=== PATIENT | male | born 1980 | race Caucasian/White ===

== ENCOUNTER 2017-02-22 07:07 | Emergency (ER) | payer SELFPAY ==
[~2017-02-22] VITALS: Ht 182.9 cm; Wt 84.1 kg
[2017-02-22 07:09] VITALS: TEMP 36.5; Ht 182.9 cm; Wt 84.1 kg
[2017-02-22] MEDS ORDERED: KETOROLAC TROMETHAMINE 30 MG/ML VIAL IV STA (07:54)
[2017-02-22] MEDS ORDERED: ONDANSETRON INJ 2 MG/ML 2 ML VIAL IV STA (07:54)
[2017-02-22 08:08] LABS: BASO % 0.1 %; BASO ABS # 0.01 K/uL (0-0.2); EOS % 3.3 %; EOS ABS # 0.29 K/uL (0-0.5); HEMATOCRIT 43.6 % (42-52); HEMOGLOBIN 15.3 g/dL (14.0-18.0); IG# 0.01 K/uL (0.00-0.02); LYMPH ABS # 1.59 K/uL (1.2-3.4); MEAN CELL VOLUME 93.2 fL (80-100); MEAN CORPUSCULAR HEMOGLOBIN 32.7 pg (25-34); MEAN CORPUSCULAR HGB CONC 35.1 g/dl (32-36); MEAN PLATELET VOLUME 10.8 fL (7.4-10.4); MONO % 19.1 %; MONO ABS # 1.69 K/uL (0.11-0.59); NEUT % 59.4 %; NEUT ABS # 5.24 K/uL (1.4-6.5); PLATELET COUNT 171 K/uL (130-400); RED CELL DISTRIBUTION WIDTH SD 51.5 fL (36.4-46.3); WHITE BLOOD COUNT 8.83 K/uL (4.8-10.8)
[2017-02-22 08:24] LABS: CALCIUM 8.4 mg/dl (8.5-10.1); CREATININE 1.34 mg/dl (0.60-1.40); POTASSIUM 3.6 mmol/L (3.5-5.1)
--- NOTE | 2017-02-22 08:56 | DIAGNOSTIC IMAGING REPORT ---
ABD/PELVIS WITHOUT FOR STONE CT DOSE: 750.34 mGy.cm HISTORY: Pain Left flank pain TECHNIQUE: Multiaxial CT images of the abdomen and pelvis were performed without the use of intravenous and oral contrast according to the standard department stone protocol. A dose lowering technique was utilized adhering to the principles of ALARA. COMPARISON STUDY: None. FINDINGS: Minimal dependent basilar atelectasis. The liver spleen and pancreas are considered unremarkable. Right kidney demonstrates several nonobstructing calcifications. It is negative for hydronephrosis. Left kidney demonstrates several renal cysts as well as several nonobstructing calcifications. There is mild left renal hydroureteronephrosis. There is a partially obstructing calculus distal left ureter measuring 8 x 5 mm. Bladder is relatively collapsed. There are several scattered colonic diverticuli with no evidence of diverticulitis. IMPRESSION: 1. Partially obstructing calculus distal left ureter measuring 8 x 5 mm. 2. Mild left hydroureteronephrosis. 3. Several nonobstructing renal calcifications bilaterally. 4. Several small left renal cysts. The above report was generated using voice recognition software. It may contain grammatical, syntax or spelling errors. Electronically signed by: Desmond Whitfield M.D. 02/22/2017 8:55 AM Dictated Date/Time: 02/22/2017 8:52 AM
[2017-02-22] MEDS ORDERED: TAMS0.4C38 PO (09:32)
[2017-02-22] MEDS ORDERED: HYDR-5688 PO (09:32)
[2017-02-22 09:41] VITALS: BP 123/85; PULSE 64; O2SAT 98
--- NOTE | 2017-02-22 10:17 | DIAGNOSTIC IMAGING REPORT ---
KUB CLINICAL HISTORY: left ureteral stone COMPARISON STUDY: CT examination same date FINDINGS: Nonobstructive bowel pattern. 8 x 5 mm calculus distal left ureter is noted on plain film. No significant additional calcifications within limitations of overlying bowel content. IMPRESSION: Distal left ureteral calculus unchanged from the CT examination of the same date. Nonobstructive bowel pattern. The above report was generated using voice recognition software. It may contain grammatical, syntax or spelling errors. Electronically signed by: Desmond Whitfield M.D. 02/22/2017 10:15 AM Dictated Date/Time: 02/22/2017 10:14 AM
--- NOTE | 2017-02-22 17:47 | EMERGENCY ROOM VISIT NOTE ---
ED Visit Note First contact with patient: 07:22 CHIEF COMPLAINT: Left Flank and abdominal pain today HISTORY OF PRESENT ILLNESS: This 36-year-old white male patient had sudden onset of pain in the left flank and left lower quadrant of the abdomen about 5 AM. There is nausea but no vomiting. The patient has not noticed any blood in urine. Increased frequency, urgency, and pain with urination this morning. There is a history of kidney stones. He has required retrieval in the past. The pain is steady and severe. A female friend accompanies him today. No fevers or chills. Patient states he also is concerned about a low temperature. He took his temperature at home and states it was 95.1. Pain is 7/10. REVIEW OF SYSTEM: HEENT: No dizziness, visual problems, hearing loss, or tinnitus. There is no difficulty swallowing and no oral lesions are present. LYMPH: No adenopathy. PULMONARY: No cough, shortness of breath, sputum production or hemoptysis. CARDIOVASCULAR: No chest pain, palpitations, shortness of breath or peripheral edema. GASTROINTESTINAL: No diarrhea, constipation, nausea, vomiting, or abdominal pain. GENITOURINARY: No dysuria, frequency, urgency or nocturia. NEUROLOGIC: No weakness, muscle tenderness, epilepsy or history of neurological problems. No history of chronic headaches. MUSCULOSKELETAL: No history of joint tenderness/swelling. No history of arthritis or arthralgias. SKIN: No rashes or lesions. PSYCHIATRIC: No history of depression or mental illness. Positive history of narcotic addiction but he states he has been clean for 18 months. ENDOCRINE: No history of diabetes, thyroid disorders, or abnormal hair growth. PMH: Supplemental sheet was reviewed and signed. Previous surgeries: Ureteroscopy Medical history: Significant for kidney stones and history of narcotic addiction Current medications: None Allergies: NKDA Family history: Noncontributory SOCIAL HISTORY: Patient lives at home. Positive tobacco use, no excessive alcohol use. PHYSICAL EXAM: Vital Signs: Afebrile. Reviewed and filed in patient's chart general: Well-developed, well-nourished, young white male, in obvious discomfort. He is sitting on the bed. Alert and oriented. The patient is restless. Skin: Warm and dry with good turgor. No rashes or lesions. No ecchymosis or erythema. The patient is not diaphoretic. No abrasions. HEART: Regular rate and rhythm without murmurs, ectopy, gallops, or rubs. Peripheral pulses are 2+. LUNGS: Clear to auscultation and breath sounds equal. No wheezes , rales, or rhonchi. Good air movement. ABDOMEN: Soft, non-tender, no hepato- splenomegaly, or masses. There is left CVA tenderness. NEUROLOGICAL: Sensory and motor functions grossly intact. EYES: PERRL, EOMI, no discharge or injection. EMERGENCY DEPARTMENT COURSE: Urinalysis shows positive blood. CT scan of the abdomen and pelvis without contrast shows an 8 x 5 mm ureteral stone with partial obstruction and hydronephrosis. KUB was also obtained today confirming the calcium oxalate stone. The patient was given Toradol 30 mg IV for the pain. The pain had improved by the time of discharge. DIAGNOSIS: Left ureterolithiasis. Left flank pain. DISCHARGE INSTRUCTIONS AND TREATMENT: The patient was educated regarding today' s findings. Conservative care measures were discussed. I did speak with Dr. Benjamin regarding this patient due to the size of the stone. He did not think it was likely to pass on its own. Patient will call the office on Friday for follow-up this week. I did discuss the possibility of ureteroscopy for retrieval versus lithotripsy. High fluid intake, strain all urine passed over the next 2 days and bring any solid particles you find to your urologist for analysis. Prescription was given for [place] 5 mg, 1-2 tablets every 6 hours if needed for pain. Driving precautions were given. He was also prescribed Flomax 0.4 mg daily 5 days. Return to the ER if the pain becomes severe. Kidney stone handout was provided. Current/Historical Medications Scheduled Tamsulosin Hcl (Flomax), 0.4 MG PO DAILY Scheduled PRN Hydrocodone/Acetaminophen 5MG/325MG ([place] 5MG/325MG), 1-2 TABLET PO Q6 PRN for Pain Allergies Coded Allergies: No Known Allergies (Unverified , 02/22/17) Vital Signs Date Time Temp Pulse Resp B/P (MAP) Pulse Ox O2 Delivery O2 Flow Rate FiO2 02/22/17 09:41 64 16 123/85 98 Room Air 02/22/17 09:00 66 123/85 97 Room Air 02/22/17 07:09 36.5 81 17 134/93 96 Room Air Laboratory Results 02/22/17 07:55 Red Blood Count 4.68, Mean Corpuscular Volume 93.2, Mean Corpuscular Hemoglobin 32.7, Mean Corpuscular Hemoglobin Concent 35.1, Mean Platelet Volume 10.8, Neutrophils (%) (Auto) 59.4, Lymphocytes (%) (Auto) 18.0, Monocytes (%) (Auto) 19.1, Eosinophils (%) (Auto) 3.3, Basophils (%) (Auto) 0.1, Neutrophils # (Auto ) 5.24, Lymphocytes # (Auto) 1.59, Monocytes # (Auto) 1.69, Eosinophils # (Auto ) 0.29, Basophils # (Auto) 0.01 02/22/17 07:55 Test 02/22/17 07:40 02/22/17 07:55 Urine Color DK YELLOW Urine Appearance CLEAR (CLEAR) Urine pH 5.0 (4.5-7.5) Urine Specific Garnett 1.035 (1.000-1.030) Urine Protein TRACE (NEG) Urine Glucose (UA) NEG (NEG) Urine Ketones NEG (NEG) Urine Occult Blood 2+ (NEG) Urine Nitrite NEG (NEG) Urine Bilirubin NEG (NEG) Urine Urobilinogen NEG (NEG) Urine Leukocyte Esterase SMALL (NEG) Urine WBC (Auto) >30 /hpf (0-5) Urine RBC (Auto) 10-30 /hpf (0-4) Urine Hyaline Casts (Auto) 1-5 /lpf (0-5) Urine Epithelial Cells (Auto) 10-20 /lpf (0-5) Urine Bacteria (Auto) 1+ (NEG) Urine Renal Epithelial Cells /lpf (0-5) Urine Mucus PRESENT (NONE PRSENT) White Blood Count 8.83 K/uL (4.8-10.8) Red Blood Count 4.68 M/uL (4.7-6.1) Hemoglobin 15.3 g/dL (14.0-18.0) Hematocrit 43.6 % (42-52) Mean Corpuscular Volume 93.2 fL (80-100) Mean Corpuscular Hemoglobin 32.7 pg (25-34) Mean Corpuscular Hemoglobin Concent 35.1 g/dl (32-36) Platelet Count 171 K/uL (130-400) Mean Platelet Volume 10.8 fL (7.4-10.4) Neutrophils (%) (Auto) 59.4 % Lymphocytes (%) (Auto) 18.0 % Monocytes (%) (Auto) 19.1 % Eosinophils (%) (Auto) 3.3 % Basophils (%) (Auto) 0.1 % Neutrophils # (Auto) 5.24 K/uL (1.4-6.5) Lymphocytes # (Auto) 1.59 K/uL (1.2-3.4) Monocytes # (Auto) 1.69 K/uL (0.11-0.59) Eosinophils # (Auto) 0.29 K/uL (0-0.5) Basophils # (Auto) 0.01 K/uL (0-0.2) RDW Standard Deviation 51.5 fL (36.4-46.3) RDW Coefficient of Variation 15.0 % (11.5-14.5) Immature Granulocyte % (Auto) 0.1 % Immature Granulocyte # (Auto) 0.01 K/uL (0.00-0.02) Anion Gap 7.0 mmol/L (3-11) Est Creatinine Clear Calc Drug Dose 85.3 ml/min Estimated GFR () 79.5 Estimated GFR (Non- 68.6 BUN/Creatinine Ratio 12.4 (10-20) Calcium Level 8.4 mg/dl (8.5-10.1) Medications Administered Medications (Trade) Dose Ordered Sig/Angela Route Start Time Stop Time Status Last Admin Dose Admin Ketorolac Tromethamine (Toradol Inj) 30 mg NOW STAT IV 02/22/17 07:54 02/22/17 07:58 DC 02/22/17 08:13 30 MG Ondansetron HCl (Zofran Inj) 4 mg NOW STAT IV 02/22/17 07:54 02/22/17 07:58 DC 02/22/17 08:13 4 MG Departure Information Prescriptions Hydrocodone/Acetaminophen 5MG/325MG ([place] 5MG/325MG) Tab 1-2 TABLET PO Q6 Y for Pain, #12 TAB For Initial Treatment Prov: Tone Winn,P.A. 02/22/17 Tamsulosin Hcl (FLOMAX) 0.4 Mg Cap 0.4 MG PO DAILY, #5 CAP Prov: Tone Winn,P.A. 02/22/17 Referrals No Doctor, Assigned (PCP) Patient Instructions Formerly [facility], [facility]
== END 2017-02-22 09:49 | disposition home or self-care (01) ==
LOC: C.EDB 07:10
DX: N20.1 Calculus of ureter (principal); R10.9 Unspecified abdominal pain; Z72.0 Tobacco use; Z87.442 Personal history of urinary calculi

== ENCOUNTER → 2017-02-28 | Day surgery (SDC) | payer SELFPAY ==
[2017-02-26 14:36] VITALS: Ht 182.9 cm; Wt 84.1 kg
[~2017-02-28] VITALS: Ht 182.9 cm; Wt 84.1 kg
[~2017-02-28] MED LIST: ATROPINE SULFATE 0.1 MG/ML 5ML SYR IV PRN; CIPROFLOXACIN 400MG / D5W IV SCH; DEXAMETHASONE SOD INJ 4 MG/ML VIAL ONE; EpHEDrine SULFATE INJ 50 MG/ML AMP IV PRN; FENTANYL CITRATE INJ 50 MCG/1 ML 2 ML VIAL IV PRN; FENTANYL CITRATE INJ 50 MCG/1 ML 2 ML VIAL ONE; HYDR-5688 PO; LACTATED RINGER'S 1000ML 1,000 ML IV SCH; LIDOCAINE HCL 2% 2 ML VIAL (20MG/ML) ONE; MIDAZOLAM HCL 1 MG/ML 2ML VIAL ONE; ONDANSETRON INJ 2 MG/ML 2 ML VIAL ONE; OXYCODONE/ACETAMINOPHEN 5-325 TAB PO PRN; PROPOFOL IV EMULSION 10 MG/ML 20 ML VIAL IV ONE; TAMS0.4C38 PO
--- NOTE | 2017-02-28 08:13 | History & Physical Bridge Note ---
H&P Re-Evaluation Bridge Note: I have examined the patient, reviewed the History & Physical and in the interval since the performance of the History & Physical I have noted the following changes of clinical significance: No changes noted
--- NOTE | 2017-02-28 10:02 | [facility] Post Operative Brief Note ---
Immediate Operative Summary Operative Date Feb 28, 2017. Pre-Operative Diagnosis Left Ureteral Stone Post-Operative Diagnosis Same Procedure(s) Performed Left Extracorporeal Shock Wave Lithotripsy Surgeon Dr. Claude Currie Donor Services Coordinator Surgeon(s) None Estimated Blood Loss 0 mL Findings Consistent with Post-Op Diagnosis Specimens None Drains None Anesthesia Type General Complication(s) none Disposition Accompanied Pt To Recover: no Disposition: Recovery Room / PACU
--- NOTE | 2017-02-28 10:05 | Discharge Instructions ---
Discharge Instructions Date of Service Feb 28, 2017. Admission Reason for Admission: Stones Discharge Discharge Diagnosis / Problem: L ureteral stone s/p ESWL Discharge Goals Goal(s): Decrease discomfort, Improve function, Improve disease control, Therapeutic intervention Activity Recommendations Activity Limitations: as noted below Lifting Limitations: no more than 25 pounds, gradually increase as tolerated Exercise/Sports Limitations: rest today, gradually increase as tolerated May Resume Sexual Activity: when tolerated Shower/Bathe: no limitations Driving or Machine Use: resume 1 day after discharge . Instructions / Follow-Up Instructions / Follow-Up Follow-up in office as scheduled with KUB Xray before appointment. Current Hospital Diet Patient's current hospital diet: Discharge Diet Recommended Diet: Regular Diet (good fluid intake) Procedures Procedures Performed: Left Extracorporeal Shock Wave Lithotripsy Pending Studies Studies pending at discharge: no Medical Emergencies . Who to Call and When: Medical Emergencies: If at any time you feel your situation is an emergency, please call 911 immediately. . Non-Emergent Contact Non-Emergency issues call your: Urologist Call Non-Emergent contact if: you have a fever, temperature is above 101, your pain is not controlled, your pain is worsening, your pain is unusual for you, your pain is concerning you, you have any medication questions . . "Provider Documentation" section prepared by Buck Currie. . VTE Core Measure Inpt VTE Proph given/why not?: SCD's
--- NOTE | 2017-02-28 10:09 | [facility] Operative Report ---
Operative Report Operative Date Feb 28, 2017. Pre-Operative Diagnosis Left Ureteral Stone Post-Operative Diagnosis Same Procedure(s) Performed Left Extracorporeal Shock Wave Lithotripsy Surgeon Dr. Claude Currie Underground Production Foreperson Surgeon(s) None Estimated Blood Loss 0 mL Findings Fair stone fragmentation on fluoro. Specimens None Drains NA Anesthesia GALMA Disposition Recovery Room / PACU Indications 36 yo male with a L distal ureteral stone for ESWL. Please see H&P for further details. Cipro IV provided and SCDs used for DVT prophylaxis. Description of Procedure The patient was brought to the litho suite. He was correctly identified and the stone was visualized on his most recent x-rays. After the correct time out was performed the patient was positioned over the therapy head. An adequate level of anesthesia was administered. The extracorporeal shockwave lithotripsy treatment was then commenced. Please see the [facility] Stone Management sheet for complete treatment summary. After completion of the procedure the patient was taken to the recovery room in stable condition. I attest to the content of the Intraoperative Record and any orders documented therein. Any exceptions are noted below.
[2017-02-28 10:42] VITALS: TEMP 36.3
[2017-02-28 11:11] VITALS: BP 136/87; PULSE 68; O2SAT 97
--- NOTE | 2017-02-28 11:16 | Anesthesia Progress Nt - [facility] ---
Anesthesia Post Op Note Date & Time Feb 28, 2017 at 11:16 Vital Signs Pain Intensity: 4.0 Vital Signs Past 12 Hours Date Time Temp Pulse Resp B/P (MAP) Pulse Ox O2 Delivery O2 Flow Rate FiO2 02/28/17 11:11 68 16 136/87 (103) 97 Room Air 02/28/17 10:42 36.3 58 18 128/88 (101) 98 Room Air 02/28/17 10:37 36.4 02/28/17 10:35 117/84 (94) 02/28/17 10:34 54 10 96 02/28/17 10:34 55 10 02/28/17 10:30 111/83 (89) 02/28/17 10:29 Room Air 02/28/17 10:29 54 7 99 02/28/17 10:29 54 7 02/28/17 10:25 114/80 (91) 02/28/17 10:24 56 6 02/28/17 10:24 56 6 98 02/28/17 10:20 117/82 (90) 02/28/17 10:19 64 5 02/28/17 10:19 65 5 97 02/28/17 10:15 114/76 (83) 02/28/17 10:14 67 14 02/28/17 10:14 71 14 97 02/28/17 10:10 107/86 (91) 02/28/17 10:09 69 14 02/28/17 10:09 69 14 96 02/28/17 10:07 117/81 (86) 02/28/17 10:04 36 70 12 119/51 99 Diffusion Mask 5 02/28/17 08:00 36.4 87 16 120/86 (97) 97 Room Air Notes Mental Status: alert / awake / arousable, participated in evaluation Pt Amnestic to Procedure: Yes Nausea / Vomiting: adequately controlled Pain: adequately controlled Airway Patency, RR, SpO2: stable & adequate BP & HR: stable & adequate Hydration State: stable & adequate Anesthetic Complications: no major complications apparent
== END | disposition home or self-care (01) ==
LOC: X.SURG 07:49
PROVIDERS: ATTEND Urology
DX: N20.0 Calculus of kidney (principal); N20.1 Calculus of ureter; F17.200 Nicotine dependence, unspecified, uncomplicated; Z98.890 Other specified postprocedural states; Z83.3 Family history of diabetes mellitus

== ENCOUNTER 2017-04-07 08:08 | Day surgery (SDC) | payer SELFPAY ==
[2017-03-24 14:46] VITALS: BMI 25.0
[~2017-04-07] VITALS: Ht 182.9 cm; Wt 84.1 kg
[~2017-04-07 08:08] MED LIST changes: -ATROPINE SULFATE 0.1 MG/ML 5ML SYR IV PRN; +CIPROFLOXACIN / D5W 400 MG IV SCH; -CIPROFLOXACIN 400MG / D5W IV SCH; -DEXAMETHASONE SOD INJ 4 MG/ML VIAL ONE; -EpHEDrine SULFATE INJ 50 MG/ML AMP IV PRN; -FENTANYL CITRATE INJ 50 MCG/1 ML 2 ML VIAL IV PRN; -FENTANYL CITRATE INJ 50 MCG/1 ML 2 ML VIAL ONE; -HYDR-5688 PO; -LIDOCAINE HCL 2% 2 ML VIAL (20MG/ML) ONE; -MIDAZOLAM HCL 1 MG/ML 2ML VIAL ONE; -ONDANSETRON INJ 2 MG/ML 2 ML VIAL ONE; -OXYCODONE/ACETAMINOPHEN 5-325 TAB PO PRN; -PROPOFOL IV EMULSION 10 MG/ML 20 ML VIAL IV ONE; -TAMS0.4C38 PO
[2017-04-07 08:30] VITALS: BP 143/88; PULSE 63; TEMP 36.4; O2SAT 98; Ht 182.9 cm; Wt 84.1 kg
[2017-04-07] MEDS ORDERED: MIDAZOLAM HCL 1 MG/ML 2ML VIAL ONE (08:58)
[2017-04-07] MEDS ORDERED: PROPOFOL IV EMULSION 10 MG/ML 20 ML VIAL IV ONE (08:58)
[2017-04-07] MEDS ORDERED: DEXAMETHASONE SOD INJ 4 MG/ML VIAL ONE (08:58)
[2017-04-07] MEDS ORDERED: LIDOCAINE HCL 2% 2 ML VIAL (20MG/ML) ONE (08:58)
[2017-04-07] MEDS ORDERED: ONDANSETRON INJ 2 MG/ML 2 ML VIAL ONE (08:58)
[2017-04-07] MEDS ORDERED: FENTANYL CITRATE INJ 50 MCG/1 ML 2 ML VIAL ONE ×3 (08:58→10:53)
[2017-04-07] MEDS ORDERED: HYDR-5688 PO (09:37)
[2017-04-07] MEDS ORDERED: PHEN95TA14 PO (09:37)
[2017-04-07] MEDS ORDERED: CIPR-255 PO (09:37)
--- NOTE | 2017-04-07 09:41 | Discharge Instructions ---
Discharge Instructions Date of Service Apr 07, 2017. Admission Reason for Admission: STONE Discharge Discharge Diagnosis / Problem: stone Discharge Goals Goal(s): Decrease discomfort, Improve function, Increase independence, Improve disease control Activity Recommendations Activity Limitations: resume your previous activity Lifting Limitations: none Exercise/Sports Limitations: none May Resume Sexual Activity: when tolerated Shower/Bathe: no limitations Driving or Machine Use: resume 1 day after discharge . Instructions / Follow-Up Instructions / Follow-Up Please keep your previously scheduled follow up appointment with Dr. Bosch. Current Hospital Diet Patient's current hospital diet: Discharge Diet Recommended Diet: Regular Diet Pending Studies Studies pending at discharge: no Medical Emergencies . Who to Call and When: Medical Emergencies: If at any time you feel your situation is an emergency, please call 911 immediately. . Non-Emergent Contact Non-Emergency issues call your: Urologist Call Non-Emergent contact if: you have a fever, temperature is above 101.5, your pain is not controlled, your pain is worsening . . "Provider Documentation" section prepared by Brendon Owens. . VTE Core Measure Inpt VTE Proph given/why not?: Treatment not indicated [place] Drug Monitoring Program Search Results: patient reviewed within database, no issues identified Drug Monitoring Findings: 2 rx's for pain meds since Feb (related to an acute stone episode and a prior surgery)
--- NOTE | 2017-04-07 10:28 | [facility] Operative Report ---
Operative Report Operative Date Apr 07, 2017. Pre-Operative Diagnosis Nephrolithiasis Post-Operative Diagnosis Nephrolithiasis Procedure(s) Performed Cystoscopy, Left Ureteroscopy, Laser Lithotripsy, Stent Insertion [id number] Surgeon Dr. Bosch Promotions Officer Surgeon(s) none Estimated Blood Loss 0 ML Findings As per dictation Specimens NONE PER SURGEON Drains [id number] Anesthesia Type General Complication(s) none Disposition no Recovery Room / PACU Indications symptomatic L ureteral stone Description of Procedure Patient was identified in the preoperative holding area, appropriate informed consents reviewed and completed and he was transported to the operating suite. Upon arrival he received appropriate preoperative antibiotics in the form of ciprofloxacin. Adequate general anesthesia was achieved and he was placed in dorsal lithotomy position where he was sterilely prepped and draped in standard fashion. I began the case by passing a 22 R[place]an cystoscope with 30 lens. Inspection of the urethra revealed no evidence of stricture disease. He has a small prostate which is appropriate for age. Inspection of the bladder revealed healthy-appearing mucosa with slight mounding of the estimated area of the intramural ureter on the left. Ureteral orifices were in orthotopic location and there was clear reflux bilaterally. After performing my full evaluation, I turned my attention to the left ureteral orifice and cannulated with a sensor wire and a 5 [place]an open-ended catheter. Under fluoroscopic guidance I was able to advance this wire to the kidney without difficulty. Of note there is a large opacity visualized alongside the wire in the extreme distal ureter. I subsequently withdrew the cystoscope and reentered with a semirigid ureteroscope. After gently guiding us into the distal ureter, I encountered a yellow appearing calculus which was impacted into the wall of the distal ureter. Utilizing a 400 m laser fiber was able to fragment the stone and free it from its site of impaction. All stone fragments were irrigated out of the ureter and into the bladder. Fluoroscopic evaluation confirmed no other retrograde movement of stones, and I passed the scope to its maximal extent seeing no other stones within the ureter. He has 2 punctate stones within the kidney, by size these appear safe for spontaneous passage. I concluded the case by placing a 6 R[place]an by 26 cm double-J ureteral stent without difficulty. There is a good curl in the kidney as well as the bladder. The bladder was decompressed and the case concluded. He was extubated and taken to the PACU in stable condition. I attest to the content of the Intraoperative Record and any orders documented therein. Any exceptions are noted below.
[2017-04-07] MEDS ORDERED: ONDANSETRON INJ 2 MG/ML 2 ML VIAL IV PRN (10:45)
[2017-04-07] MEDS ORDERED: ATROPINE SULFATE 0.1 MG/ML 5ML SYR IV PRN (10:45)
[2017-04-07] MEDS ORDERED: EpHEDrine SULFATE INJ 50 MG/ML AMP IV PRN (10:45)
[2017-04-07] MEDS ORDERED: PROMETHAZINE HCL INJ 6.25 MG in SODIUM CHLORIDE 0.9% 50ML 50 ML IV PRN (10:45)
[2017-04-07] MEDS ORDERED: FENTANYL CITRATE INJ 50 MCG/1 ML 2 ML VIAL IV PRN (10:45)
--- NOTE | 2017-04-07 10:45 | DIAGNOSTIC IMAGING REPORT ---
L KUB CLINICAL HISTORY: 36 years-old Male presenting with LEFT SIDE LASER/LITHO AND STENT PLACEMENT. TECHNIQUE: 2 fluoroscopic spot image(s) obtained as part of an intraoperative procedure. COMPARISON: 03/21/2017. FINDINGS/IMPRESSION: Interval placement of a guidewire into the left ureter. At the initiation of the procedure, a distal left ureteral calculus is evident. Subsequently a left ureteral stent was placed. Please see surgical report for further details. Dose area product (mGy.cm^2): 342.4. Fluoroscopy time: 7.7 seconds. Number of fluoroscopic spot images: 2. Electronically signed by: Jayy Keenan M.D. 04/07/2017 10:43 AM Dictated Date/Time: 04/07/2017 10:42 AM
[2017-04-07] MEDS ORDERED: SODIUM CHLORIDE 0.9% 1000ML 1,000 ML IV SCH (10:46)
[2017-04-07] MEDS ORDERED: ACETAMINOPHEN 325 MG TAB PO PRN (11:00)
[2017-04-07] MEDS ORDERED: OXYCODONE/ACETAMINOPHEN 5-325 TAB PO PRN ×2 (11:00)
[2017-04-07 11:28] VITALS: BP 122/83; PULSE 57; TEMP 36.6; O2SAT 98
--- NOTE | 2017-04-07 11:28 | Anesthesiology Progress Note ---
Anesthesia Post Op Note Date & Time Apr 07, 2017 at 11:28 Vital Signs Pain Intensity: 4 Vital Signs Past 12 Hours Date Time Temp Pulse Resp B/P (MAP) Pulse Ox O2 Delivery O2 Flow Rate FiO2 04/07/17 11:20 36.3 61 16 112/83 96 Room Air 04/07/17 11:10 36.3 67 16 111/85 97 Room Air 04/07/17 11:00 70 16 115/78 97 Room Air 04/07/17 10:50 68 16 115/53 97 Oxymask 10 04/07/17 10:40 68 12 107/67 97 Oxymask 10 04/07/17 10:34 36.1 82 12 125/89 96 Oxymask 10 04/07/17 08:30 36.4 63 20 143/88 (106) 98 Room Air Notes Mental Status: alert / awake / arousable, participated in evaluation Pt Amnestic to Procedure: Yes Nausea / Vomiting: adequately controlled Pain: adequately controlled Airway Patency, RR, SpO2: stable & adequate BP & HR: stable & adequate Hydration State: stable & adequate Anesthetic Complications: no major complications apparent
[2017-04-07 12:00] VITALS: BP 124/82; PULSE 50; TEMP 35.6; O2SAT 100
== END 2017-04-07 12:18 | disposition home or self-care (01) ==
LOC: C.ACU 08:08
PROVIDERS: ATTEND Urology
DX: N20.0 Calculus of kidney (principal); N39.0 Urinary tract infection, site not specified; Z83.3 Family history of diabetes mellitus; F17.200 Nicotine dependence, unspecified, uncomplicated

== ENCOUNTER 2017-04-15 15:36 | Emergency (ER) | payer SELFPAY ==
[~2017-04-15] VITALS: Ht 185.4 cm; Wt 84.0 kg
[~2017-04-15 15:36] MED LIST changes: +CIPR-255 PO; -CIPROFLOXACIN / D5W 400 MG IV SCH; +HYDR-5688 PO; -LACTATED RINGER'S 1000ML 1,000 ML IV SCH; +PHEN95TA14 PO
[2017-04-15 15:39] VITALS: BP 147/98; Ht 185.4 cm; Wt 84.0 kg
[2017-04-15] MEDS ORDERED: HYDR-5688 PO (15:56)
[2017-04-15] MEDS ORDERED: PENI-82 PO (15:56)
[2017-04-15 15:58] VITALS: PULSE 73; TEMP 36.4; O2SAT 97
--- NOTE | 2017-04-15 15:59 | EMERGENCY ROOM VISIT NOTE ---
History First contact with patient: 15:41 Chief Complaint: DENTAL PAIN Stated Complaint: TOOTH INFECTION, TOOTH PAIN Nursing Triage Summary: pt states he has right upper dental pain for the past 2 days and thinks it is infected pt drinking in triage without difficulty and unable to get tmep at this time History of Present Illness The patient is a 36 year old male who presents to the Emergency Room with complaints of dental pain. The patient states that he has an upper right molar which is broken off. He has had issues with the tooth in the past. He reports that 2 days ago, he began having pain in the tooth. It has been constant. He states that is sharp and throbbing and rates the discomfort a 9/10. He has taken ibuprofen and Tylenol without relief. He has also tried clove oil and Orajel without relief. He has been drinking cold water constantly and feels this helps with the pain. He denies facial swelling or fevers. Review of Systems A complete 10 point review of systems was reviewed with the patient with pertinent positives and negatives as per history of present illness. All else were negative. Past Medical/Surgical History Medical Problems: (1) Kidney stones Social History Smoking Status: Current Every Day Smoker Housing Status: lives with family Current/Historical Medications Scheduled Oxybutynin Chloride (Oxybutynin Chloride), 1 TAB PO DAILY Penicillin V Potassium (Veetids), 500 MG PO QID Tamsulosin Hcl (Flomax), 0.4 MG PO DAILY Scheduled PRN Hydrocodone/Acetaminophen 5MG/325MG ([place] 5MG/325MG), 1-2 TABLET PO Q4H PRN for Pain Physical Exam Vital Signs Date Time Temp Pulse Resp B/P (MAP) Pulse Ox O2 Delivery O2 Flow Rate FiO2 04/15/17 15:58 36.4 73 16 97 Room Air 04/15/17 15:39 71 18 147/98 96 Physical Exam VITALS: Vitals are noted on the nurse's note and reviewed by myself. Vital signs stable. GENERAL: This is a 36-year-old male, in no acute distress, nondiaphoretic, well- developed well-nourished. SKIN: The skin was without rashes. EARS: External auditory canals clear, tympanic membranes pearly hickey without erythema or effusion bilaterally. EYES: Pupils equal round and reactive to light and accommodation. MOUTH: One of the right upper molars is broken off. There is no surrounding redness or swelling. No facial swelling noted. NECK: Supple without nuchal rigidity. No lymphadenopathy. HEART: Regular rate and rhythm without murmurs gallops or rubs. LUNGS: Clear to auscultation bilaterally without wheezes, rales or rhonchi. NEURO: Patient was alert and oriented to person place and time. Medical Decision & Procedures Medical Decision The patient was evaluated as above. He presents with right-sided dental pain. There is no evidence of a significant abscess or facial cellulitis. Patient will be treated with penicillin. He was given a short course of Bremond as he has tried multiple syrj-wik-yfxblsk medications for pain without relief. He was advised that he will need to follow-up with a dentist for further evaluation of his dental pain. He verbalized understanding of my assessment and treatment plan and was discharged home in good condition. [facility] Drug Monitoring Program Search Results: patient reviewed within database (pt has received recent rx for kidney stones- otherwise unremarkable) Medication Reconcilliation Current Medication List: was personally reviewed by me Blood Pressure Screening Patient's blood pressure: Elevated blood pressure Blood pressure disposition: Elevated BP felt to be situational Impression Primary Impression: Dentalgia Departure Information Dispostion Home / Self-Care Condition GOOD Prescriptions Hydrocodone/Acetaminophen 5MG/325MG (B[place] 5MG/325MG) Tab 1-2 TABLET PO Q4H Y for Pain, #12 TAB For Initial Treatment Prov: Debbi Cai PA-C 04/15/17 Penicillin V Potassium (Veetids) 500 Mg Tab 500 MG PO QID for 10 Days, #40 TAB Prov: Debbi Cia PA-C 04/15/17 Referrals No Doctor, Assigned (PCP) Patient Instructions My [facility] Additional Instructions You have been treated in the Emergency Department for Dental Pain. You have been prescribed Bremond to be used for pain control. This is a narcotic medication. You cannot drive or consume alcohol while on this medicine. This medicine should only be used for pain that cannot be controlled with over-the- counter pain medicines. You were prescribed Pen VK to be taken four times daily as prescribed. This is an antibiotic. All antibiotics have the potential to cause diarrhea. Stop this medication and contact a medical provider if you were to develop any significant adverse side effects including: wheezing, shortness of breath, passing out, vomiting, or a diffuse rash. Always take antibiotics as directed and COMPLETE the ENTIRE course regardless of the improvement of your symptoms. For pain control, you can use the following mgxg-dse-guhnkdm medicines (if >12 yo): - Regular strength (325mg/tab) Tylenol (acetaminophen) 2 tabs every 4-6 hours as needed. Do not exceed 12 tablets in a 24 hour period. Avoid taking more than 4 grams (4000 mg) of Tylenol per day. This includes any other sources of acetaminophen you may take on a regular basis. - Regular strength (200 mg/tab) Advil (ibuprofen) 1-2 tabs every 4-6 hours as needed. Do not exceed a dose of 3200 mg per day. Refrain from smoking cigarettes or using chewing tobacco until you have been evaluated by your dentist. Keeping beverages lukewarm and consuming soft foods can decrease your pain. Warm compresses over the affected area may offer some relief. You MUST seek evaluation of your dental pain by a dentist following your visit to the Emergency Department. The Emergency Department is not capable of treating dental issues long-term. You should call your dentist as soon as possible to make an appointment for evaluation of your dental pain. Follow up with Dr. Rodgers [phone] [id number] [facility], [place] Return to the emergency department if you develop the following symptoms despite treatment course outlined above: fever, intractable pain, increased redness, swelling, or purulent discharge.
[2017-04-15] MEDS ORDERED: DTR5 PO (16:04)
[2017-04-15] MEDS ORDERED: TAMS0.4C38 PO (16:04)
== END 2017-04-15 16:09 | disposition home or self-care (01) ==
LOC: C.EDB 15:38 → C.EDD 16:09
DX: K08.89 Other specified disorders of teeth and supporting structures (principal); Z79.899 Other long term (current) drug therapy; Z87.442 Personal history of urinary calculi; F17.200 Nicotine dependence, unspecified, uncomplicated

== ENCOUNTER 2017-06-26 21:02 | Emergency (ER) | payer SELFPAY ==
[~2017-06-26] VITALS: Ht 182.9 cm; Wt 83.7 kg
[~2017-06-26 21:02] MED LIST changes: -CIPR-255 PO; +DTR5 PO; -PHEN95TA14 PO; +TAMS0.4C38 PO
[2017-06-26 21:07] VITALS: TEMP 36.7; Ht 182.9 cm; Wt 83.7 kg
[2017-06-26] MEDS ORDERED: SODIUM CHLORIDE 0.9% 500ML 500 ML IV STA (21:51)
[2017-06-26] MEDS ORDERED: FENTANYL CITRATE INJ 50 MCG/1 ML 2 ML VIAL IV STA (21:51)
[2017-06-26] MEDS ORDERED: ACETAMINOPHEN 500 MG TAB PO STA (21:51)
[2017-06-26] MEDS ORDERED: TAMSULOSIN HCL 0.4 MG CAP PO ONE (22:00)
--- NOTE | 2017-06-26 22:15 | EMERGENCY ROOM VISIT NOTE ---
History Report prepared by Katja: Marlena Mora Under the Supervision of: Dr. Daily Rodríguez D.O. First contact with patient: 21:11 Chief Complaint: URINARY SYMPTOMS Stated Complaint: BLOOD IN URINE, PAIN IN MID BACK SECTION History of Present Illness The patient is a 37 year old male who presents to the Emergency Room with complaints of persistent hematuria starting earlier today. The patient is also having right lower back pain which feels like a kidney stone. He has had multiple kidney stones over the past couple of years and has had lithotripsy several times. He is not having any abdominal pain or groin pain yet. He took 600 mg of ibuprofen around 1800. He denies any fever, chills, nausea, or vomiting. He denies any history of kidney failure or kidney infection. Patient states he was aware that he had a kidney stone in the right kidney already, and Dr. Bosch told him it was "borderline possible". Source of History: patient Onset: earlier today Position: other (urine) Quality: other (hematuria) Timing: other (persistent) Associated Symptoms: + back pain, No fevers, No chills, No nausea, No vomiting, No abdominal pain Review of Systems See HPI for pertinent positives & negatives. A total of 10 systems reviewed and were otherwise negative. Past Medical & Surgical Medical Problems: (1) Kidney stones Family History No family history of kidney stones. Social History Smoking Status: Never Smoker Marital Status: in relationship Occupation Status: employed Current/Historical Medications Scheduled Ondasetron Odt (Zofran Odt), 4 MG SL Q8 Tamsulosin Hcl (Flomax), 0.4 MG PO DAILY Scheduled PRN Ibuprofen (Advil), 600 MG PO Q6H PRN for Pain Oxycodone/Acetaminophen 5MG/325MG (Percocet 5MG/325MG), 1-2 TABS PO Q6 PRN for Pain Allergies Coded Allergies: No Known Allergies (Unverified , 03/24/17) Physical Exam Vital Signs Date Time Temp Pulse Resp B/P (MAP) Pulse Ox O2 Delivery O2 Flow Rate FiO2 06/27/17 00:09 59 18 134/86 98 06/26/17 22:23 73 18 143/100 100 Room Air 06/26/17 21:07 36.7 69 29 120/89 99 Room Air Physical Exam GENERAL: alert, well appearing, well nourished, no distress, non-toxic EYE EXAM: normal conjunctiva, PERRL and EOM's grossly intact OROPHARYNX: no exudate, no erythema, lips, buccal mucosa, and tongue normal and mucous membranes are moist NECK: supple, no nuchal rigidity, no adenopathy, non-tender LUNGS: Clear to auscultation. Normal chest wall mechanics HEART: no murmurs, S1 normal and S2 normal ABDOMEN: abdomen soft, non-tender, normo-active bowel sounds, no masses, no rebound or guarding. BACK: Back is symmetrical on inspection and there is no deformity, no midline tenderness, no CVA tenderness. Mild right lateral low back tenderness. SKIN: no rashes and no bruising UPPER EXTREMITIES: upper extremities are grossly normal. LOWER EXTREMITIES: No pitting edema. NEURO EXAM: Normal sensorium, cranial nerves II-XII grossly intact, normal speech, no gross weakness of arms, no gross weakness of legs. Medical Decision & Procedures ER Provider Diagnostic Interpretation: Ultrasound renal: Mild right hydronephrosis. Suspected 7 mm stone in proximal ureter. Right kidney 10.8 cm. Probable nephrolithiasis. Left kidney 11.5 cm. Renal cysts. Bilateral ureteral jets are noted. Some echoes/debris is in the bladder. Radiologist: Harley Yanes M.D. Laboratory Results 06/26/17 22:23 06/26/17 22:23 Test 06/26/17 21:30 06/26/17 22:23 Urine Color YELLOW Urine Appearance CLOUDY (CLEAR) Urine pH 6.5 (4.5-7.5) Urine Specific [place] 1.023 (1.000-1.030) Urine Protein NEG (NEG) Urine Glucose (UA) NEG (NEG) Urine Ketones NEG (NEG) Urine Occult Blood 3+ (NEG) Urine Nitrite NEG (NEG) Urine Bilirubin NEG (NEG) Urine Urobilinogen NEG (NEG) Urine Leukocyte Esterase TRACE (NEG) Urine WBC (Auto) 1-5 /hpf (0-5) Urine RBC (Auto) >30 /hpf (0-4) Urine Hyaline Casts (Auto) 0 /lpf (0-5) Urine Epithelial Cells (Auto) 0-5 /lpf (0-5) Urine Bacteria (Auto) NEG (NEG) Red Blood Count 4.80 M/uL (4.7-6.1) Mean Corpuscular Volume 90.4 fL (80-100) Mean Corpuscular Hemoglobin 32.3 pg (25-34) Mean Corpuscular Hemoglobin Concent 35.7 g/dl (32-36) RDW Standard Deviation 50.3 fL (36.4-46.3) RDW Coefficient of Variation 15.1 % (11.5-14.5) Mean Platelet Volume 10.0 fL (7.4-10.4) Anion Gap 7.0 mmol/L (3-11) Est Creatinine Clear Calc Drug Dose 69.9 ml/min Estimated GFR () 62.8 Estimated GFR (Non- 54.2 BUN/Creatinine Ratio 10.3 (10-20) Calcium Level 9.1 mg/dl (8.5-10.1) Chemistry Specimen Hemolysis Laboratory results per my review. Medications Administered Medications (Trade) Dose Ordered Sig/Angela Route Start Time Stop Time Status Last Admin Dose Admin Sodium Chloride 500 ml @ 999 mls/hr Q31M STAT IV 06/26/17 21:51 06/26/17 22:21 DC 06/26/17 22:14 999 MLS/HR Fentanyl Citrate (Fentanyl Inj) 50 mcg NOW STAT IV 06/26/17 21:51 06/26/17 21:53 DC 06/26/17 22:15 50 MCG Acetaminophen (Tylenol Tab) 1,000 mg NOW STAT PO 06/26/17 21:51 06/26/17 21:53 DC 06/26/17 22:14 1,000 MG Tamsulosin HCl (Flomax Cap) 0.4 mg NOW ONCE PO 06/26/17 22:00 06/26/17 22:01 DC 06/26/17 22:14 0.4 MG Ondansetron HCl (ZOFRAN ODT 4MG Home Pack) 1 homepack UD ONCE PO 06/27/17 00:00 06/27/17 00:01 DC 06/27/17 00:05 1 HOMEPACK Oxycodone/ Acetaminophen (Percocet 5/ 325MG Home Pack) 1 homepack UD ONCE PO 06/27/17 00:00 06/27/17 00:01 DC 06/27/17 00:05 1 HOMEPACK ED Course 3: The patient was evaluated in room C8. A complete history and physical exam was performed. 2151: Acetaminophen 1000 mg PO, Fentanyl Inj 50 mcg IV, Sodium Chloride 500 ml @ 999 mls/hr IV. 2199: Flomax Cap 0.4 mg PO. 2344: Patient comfortable appearing at bedside, updated on all results. States pain is a dull ache in his right low back yet. No vomiting, no fevers. Discussed with patient close follow-up with Dr. Bosch, discussed symptoms to watch and return for. No evidence of infection at this time. Discussed mild elevation of his creatinine and avoidance of any anti-inflammatory agents. Medical Decision Differential diagnosis: Etiologies such as renal colic, appendicitis, diverticulitis, mesenteric ischemia, aortic pathology, infections, inflammatory bowel disease, PUD, biliary pathology, UTI, as well as others were entertained. Pt with multiple prior kidney stones and known stone on the right. Pt with presenting with sx of renal colic. Pt appears comfortable here. Mild renal insufficiency noted, however pt admits to decreased water intake and use of NSAIDS. Advised pt to drink more water, avoid nsaids, and call his urologist tomorrow. Pt with established urologist. Pt states percocet has previously helped with his pain, discussed use of flomax. Discussed with pt possibility of worsening pain, worsening renal function, sx to watch/return for, he verbalized understanding and was agreeable with plan. Pt states he has a strainer at home. No evidence of concurrent infectious etiology. Discussed US vs CT with pt as he has had multiple prior CT's, and used shared medical decision making in choice of imaging. US reassuring as no evidence for complete obstruction. VS stable. No evidence of bacteremia/sepsis. Pt without an prior renal comorbidities, long standing hx of stones, I feel reasonable to attempt outpt mgmt of his ureterolithiasis with close f/u with urology. I feel pt is reasonable to f/u or return for any new or worsening symptoms. Medication Reconcilliation Current Medication List: was personally reviewed by me Blood Pressure Screening Patient's blood pressure: Normal blood pressure Blood pressure disposition: Did not require urgent referral Impression Primary Impression: Acute flank pain Additional Impressions: Hematuria Renal colic Scribe Attestation The scribe's documentation has been prepared under my direction and personally reviewed by me in its entirety. I confirm that the note above accurately reflects all work, treatment, procedures, and medical decision making performed by me. Departure Information Dispostion Home / Self-Care Prescriptions Ondasetron Odt (ZOFRAN ODT) 4 Mg Tab 4 MG SL Q8 for Nausea, #15 TAB Prov: Daily Rodríguez, DO 06/26/17 Tamsulosin Hcl (FLOMAX) 0.4 Mg Cap 0.4 MG PO DAILY, #10 CAP Prov: Daily Rodríguez, DO 06/26/17 Oxycodone/Acetaminophen 5MG/325MG (PERCOCET 5MG/325MG) Tab 1-2 TABS PO Q6 Y for Pain, #15 TAB Prov: Daily Rodríguez, DO 06/26/17 Referrals No Doctor, Assigned (PCP) Patient Instructions My [facility] Additional Instructions Please call Dr. Bosch's office to follow-up with him. Please drink plenty of water. Please avoid ibuprofen/Motrin/Aleve due to the slight elevation of your creatinine (kidney number). You may use the other pain medication as prescribed. Please take the Flomax daily until otherwise instructed by Dr. Bosch. If you have any worsening pain, develop fevers, vomiting, are unable to urinate, you have any other new concerns, please return the emergency room. Problem Qualifiers Additional Impressions: Hematuria Hematuria type: unspecified type Qualified Codes: R31.9 - Hematuria, unspecified
[2017-06-26 22:32] LABS: HEMATOCRIT 43.4 % (42-52); HEMOGLOBIN 15.5 g/dL (14.0-18.0); MEAN CELL VOLUME 90.4 fL (80-100); MEAN CORPUSCULAR HEMOGLOBIN 32.3 pg (25-34); MEAN CORPUSCULAR HGB CONC 35.7 g/dl (32-36); PLATELET COUNT 185 K/uL (130-400); RED CELL DISTRIBUTION WIDTH CV 15.1 % (11.5-14.5); RED CELL DISTRIBUTION WIDTH SD 50.3 fL (36.4-46.3); WHITE BLOOD COUNT 8.06 K/uL (4.8-10.8)
[2017-06-26] MEDS ORDERED: IBUP-1050 PO (22:44)
[2017-06-26 22:53] LABS: CALCIUM 9.1 mg/dl (8.5-10.1); CREATININE 1.62 mg/dl (0.60-1.40); POTASSIUM 3.6 mmol/L (3.5-5.1)
[2017-06-26] MEDS ORDERED: TAMS0.4C38 PO (23:55)
[2017-06-26] MEDS ORDERED: OXYC-57 PO (23:55)
[2017-06-26] MEDS ORDERED: ONDA4TAB10 SL (23:55)
[2017-06-27] MEDS ORDERED: OXYCODONE/ACETAMINOPHEN 5-325 TAB PO ONE
[2017-06-27] MEDS ORDERED: ONDANSETRON HOME PACK 4MG OD TAB PO ONE
[2017-06-27] MEDS ORDERED: PERCOCET HOME PACK PO ONE
[2017-06-27 00:09] VITALS: BP 134/86; PULSE 59; O2SAT 98
--- NOTE | 2017-06-27 07:12 | DIAGNOSTIC IMAGING REPORT ---
(RENAL)RETROPERITON COMP CLINICAL HISTORY: 37 years-old Male presenting with right flank pain, hx stones, gross hematuria. TECHNIQUE: Real-time grayscale and limited color Doppler ultrasound imaging of the kidneys and bladder was performed. COMPARISON: CT from 02/22/2017. FINDINGS: Right kidney: Normal echogenicity of renal parenchyma. Right kidney measures 10.8 cm. Mild pelvocaliectasis. The proximal right ureter measures 5 mm in maximal AP dimension. A hyperechoic focus is suggested in the proximal right ureter with twinkling artifact, suggesting calculus. This measures 6-7 mm. Additional nonobstructing right renal calculi suggested. Left kidney: Normal echogenicity of renal parenchyma. Left kidney measures 11.5 cm. No hydronephrosis. 2.9 cm simple cyst noted in the interpolar region with additional smaller simple cysts elsewhere. Bladder: Mobile intraluminal bladder debris. Bilateral ureteral jets present though slightly asymmetric with a greater jet on the right. Other: None. IMPRESSION: 1. 6-7 mm calculus suspected in the proximal right ureter with resultant mild right hydronephrosis. 2. Presence of the bilateral ureteral jets suggests that this is not a complete obstruction. 3. Additional nonobstructing right renal calculus suspected. 4. Intraluminal bladder debris, nonspecific and possibly representing small calculi. This can also be seen in the setting of hemorrhage or infection. Electronically signed by: Jayy Keenan M.D. 06/27/2017 7:11 AM Dictated Date/Time: 06/27/2017 7:06 AM
== END 2017-06-27 00:10 | disposition home or self-care (01) ==
LOC: C.EDB 21:05 → C.EDC 06-27 00:10
DX: N20.2 Calculus of kidney with calculus of ureter (principal); Z87.442 Personal history of urinary calculi